=== PATIENT | male | born 1995 | race Caucasian/White ===

== ENCOUNTER 2022-02-25 12:06 | Emergency (ER) | payer BC, OTHER ==
[~2022-02-25] VITALS: Ht 180.3 cm; Wt 93.3 kg
[2022-02-25 13:54] VITALS: BP 119/65
== END 2022-02-25 13:55 | disposition home or self-care (01) ==
LOC: M ED 12:06
DX: S09.90XA Unspecified injury of head, initial encounter (principal); S10.81XA Abrasion of other specified part of neck, initial encounter; W22.8XXA Striking against or struck by other objects, initial encounter; Y92.89 Other specified places as the place of occurrence of the external cause